=== PATIENT | female | born 1980 | race Caucasian/White ===

== ENCOUNTER 2022-03-01 08:42 | Outpatient (CLI) | payer OTHER | END 2022-03-01 08:43 | disposition home or self-care (01) | LOC: BICMAMMO 08:42 | PROVIDERS: ATTEND Obstetrics & Gynecology | DX: N63.21 Unspecified lump in the left breast, upper outer quadrant (principal); N63.11 Unspecified lump in the right breast, upper outer quadrant | CPT/HCPCS: 77066; G0279 ==

== ENCOUNTER → 2022-03-06 | Day surgery (SDC) | payer OTHER | END | disposition home or self-care (01) | LOC: BICULT 12:49 | PROVIDERS: ATTEND Obstetrics & Gynecology | PROC: 0H9T3ZX Drainage of Right Breast, Percutaneous Approach, Diagnostic (ICD-10-PCS; principal; 2022-03-06) | DX: D24.1 Benign neoplasm of right breast (principal) | CPT/HCPCS: 19083; 88305 ==

== ENCOUNTER 2023-08-21 16:10 | Outpatient (CLI) | payer OTHER | END 2023-08-21 16:11 | disposition home or self-care (01) | LOC: BICRAD 16:10 | PROVIDERS: ATTEND Nurse Practitioner Family | DX: M54.2 Cervicalgia (principal) | CPT/HCPCS: 72040 ==

== ENCOUNTER 2024-03-20 07:36 | Outpatient (CLI) | payer OTHER | END 2024-03-20 07:37 | disposition home or self-care (01) | LOC: BICMAMMO 07:36 | PROVIDERS: ATTEND Obstetrics & Gynecology | DX: Z12.31 Encounter for screening mammogram for malignant neoplasm of breast (principal) | CPT/HCPCS: 77063; 77067 ==